=== PATIENT | female | born 1965 | race Caucasian/White ===

== ENCOUNTER 2024-03-28 17:59 | Emergency (ER) | payer OTHER, SELFPAY ==
--- NOTE | ~2024-03-28 | XR_ITS ---
XR chest 2V Ordering provider: Jennifer Carter PA-C History: 58 years Female with . sob, colonoscopy today, r/o aspiration . Comparison: None. FINDINGS: MEDIASTINUM: The cardiac silhouette is not enlarged. LUNGS: No infiltrates, effusions or pneumothorax. Prominent markings in the left upper and lower lobe with patchy opacities which may be focal pneumoni a or nodules. Follow-up advised. OTHER: No free air under the diaphragm. Degenerative spine. IMPRESSION: Patchy opacities in the left upper and lower lobe suggestive of pneumonia. Nodules cannot be excluded . Follow-up advised. Reviewed, dictated and finalized at location A. IMPRESSION: Patchy opacities in the left upper and lower lobe suggestive of pneumonia. Nodu les cannot be excluded. Follow-up advised.
[2024-03-28 18:04] VITALS: BP 136/60; PULSE 118; RESP 20; TEMP 37.5; O2SAT 95
--- NOTE | 2024-03-28 18:10 | ECG_ITS ---
Test Date: 2024-03-28 18:19:02 Measurements Intervals [place] Rate: 106 P: 47 FL: 155 QRS: 7 QRSD: 90 T: 13 QT: 316 QTc: 420 Interpretive Statements SINUS TACHYCARDIA BORDERLINE ST-T WAVE ABNORMALITY- ANTEROLAT/INF LEADS BASELINE ARTIFACT- I, II, III, AVR, AVL, AVF BORDERLINE ECG No previous ECG available for comparison Electronically Signed On 03-28-2024 20:27:50 CDT by Naeem Mireles D.O.
--- NOTE | 2024-03-28 18:10 | ED.SOB ---
HPI - SOB/Dyspnea General Chief Complaint: Shortness of Breath/Dyspnea <FELIPE Mcdowell Last Filed: 03/28/24 18:56> Stated Complaint: shortness of breath <FELIPE Mcdowell Last Filed: 03/28/24 18:56> Time Seen by Provider: 03/28/24 18:05 <FELIPE Mcdowell Last Filed: 03/28/24 18:56> Focused HPI: Patient is a 58-year-old female who presents the ED with report of shortness breath. Patient reports she had an outpatient colonoscopy today at [facility] and was told that they had to suction her wall colonoscopy was performed. Since waking up post procedure, she has had sore throat, cough, shortness of breath, chest heaviness. States she is concerned for aspiration. Reports low grade fever at home. Denies sick contacts. GENERAL: Well-appearing, obese with BMI of 35.7, and in no acute distress. HEAD: Normocephalic, atraumatic. CHEST: Clear to auscultation. No respiratory distress. Frequent coughing on exam. Diffuse rhonchi in bases, worse in left lower lung. HEART: Tachycardic with regular rhythm.? NEURO: ?Alert and oriented x3. Patient screened in triage and initial orders placed.? ?Additional care and disposition to be based upon?diagnostic testing and treatment. <FELIPE Mcdowell Last Filed: 03/28/24 18:56> Source: patient <FELIPE Mcdowell Last Filed: 03/28/24 18:56> Mode of arrival: ambulatory <FELIPE Mcdowell Last Filed: 03/28/24 18:56> Limitations: no limitations <FELIPE Mcdowell Last Filed: 03/28/24 18:56> Related Data Allergies/Adverse Reactions: Allergies Allergy/AdvReac Type Severity Reaction Status Date / Time No Known Allergies Allergy Unknown Unverified 05/15/16 13:59 <FELIPE Mcdowell Last Filed: 03/28/24 18:56> Exam Narrative: EXAMINATION OF ORGAN SYSTEMS/BODY AREAS: Constitutional: Vital signs per nursing GENERAL:[No acute distress, non-toxic appearing.] HEAD: Normal with no signs of head trauma. EYES: EOMI, conjunctiva normal ENT: Hearing grossly intact LUNGS: Nonlabored breathing. HEART: [Regular rate and rhythm] ABD: Not distended EXT: Normal range of motion SKIN: [No rashes or lesions.] NEURO: [Alert and oriented x 3. No gross focal sensory or strength deficits.] PSYCH: Normal affect <Chikis Adame MD - Last Filed: 03/28/24 20:11> Course Vital Signs Vital signs: Vital Signs Temperature 99.5 F 03/28/24 18:04 Pulse Rate 118 H 03/28/24 18:04 Respiratory Rate 20 03/28/24 18:04 Blood Pressure 136/60 03/28/24 18:04 Pulse Oximetry 95 03/28/24 18:04 Oxygen Delivery Room Air 03/28/24 18:04 Temperature 98.9 F 03/28/24 19:30 Pulse Rate 98 03/28/24 19:30 Respiratory Rate 14 03/28/24 19:30 Blood Pressure 103/63 03/28/24 19:30 Pulse Oximetry 95 03/28/24 19:30 Oxygen Delivery Room Air 03/28/24 18:24 <Jennifer Carter PA-C - Last Filed: 03/28/24 18:56> Vital Signs Temperature 99.5 F 03/28/24 18:04 Pulse Rate 118 H 03/28/24 18:04 Respiratory Rate 20 03/28/24 18:04 Blood Pressure 136/60 03/28/24 18:04 Pulse Oximetry 95 03/28/24 18:04 Oxygen Delivery Room Air 03/28/24 18:04 Temperature 98.9 F 03/28/24 19:30 Pulse Rate 98 03/28/24 19:30 Respiratory Rate 14 03/28/24 19:30 Blood Pressure 103/63 03/28/24 19:30 Pulse Oximetry 95 03/28/24 19:30 Oxygen Delivery Room Air 03/28/24 18:24 <Chikis Adame MD - Last Filed: 03/28/24 20:11> MDM - SOB/Dyspnea MDM Narrative Medical decision making narrative: MSE by SLIME in triage. <Jennifer Carter PA-C - Last Filed: 03/28/24 18:56> MSE by SLIME in triage. // Patient presents with cough and chills started today after her colonoscopy. she does have an elevated white count, she has no abdominal pain or tenderness, she did test positive for COVID, pneumonia seen on chest x-
[2024-03-28 18:34] LABS: Basophils Percent Auto 0.2 % (0.2-1.2); Hematocrit 39.8 % (37.0-47.0); Hemoglobin 13.3 g/dL (12.0-15.0); Immature Granulocyte Absolute 0.04 K/mm3 (0.00-0.031); Immature Granulocyte Percent A 0.3 % (0-0.5); Lymphocytes Absolute Auto 0.92 K/mm3 (0.9-3.2); Lymphocytes Percent Auto 6.6 % (18.3-44.2); Mean Corpuscular HGB Conc 33.4 g/dl (32-36); Mean Corpuscular Hemoglobin 31.6 pg (26-34); Mean Corpuscular Volume 94.5 fl (80-100); Mean Platelet Volume 11.1 fl (7.4-10.4); Monocytes Absolute Auto 0.5 K/mm3 (0.1-0.6); Monocytes Percent Auto 3.9 % (2.6-8.5); Neutrophils Absolute Auto 12.3 K/mm3 (1.3-6.7); Platelet Count Result 271 k/mm3 (150-375); Red Blood Count 4.21 M/mm3 (4.2-5.4); Red Cell Distribution Width 12.5 % (11.5-14.5); White Blood Count 13.9 K/mm3 (4.5-10.0)
[2024-03-28 18:46] LABS: Prothrombin Time 13.2 Seconds (11.1-14.7)
[2024-03-28 18:47] LABS: Partial Thromboplastin Time 26.6 Seconds (22.3-36.8)
[2024-03-28] MEDS: ACETAMINOPHEN 500 MG TABLET 1000 MG PO (18:47)
[2024-03-28 18:48] LABS: Alanine Aminotransferase 39 U/L (6-35); Albumin Level 4.3 g/dL (3.5-5.1); Alkaline Phosphatase 68 U/L (38-126); Anion Gap 12 mmol/L (4-12); Aspartate Amino Transferase 35 U/L (14-36); Bilirubin,Total 0.3 mg/dL (0.2-1.3); Blood Urea Nitrogen 14 mg/dL (7-17); Calcium 9.2 mg/dL (8.4-10.2); Carbon Dioxide 24 mmol/L (22-30); Chloride 101 mmol/L (98-107); Estimated CRCL calculation 125 ml/min; Estimated Glomerular Filt Rate > 60; Glucose 177 mg/dL (65-110); Potassium 3.8 mmol/L (3.4-5.0); Sodium 137 mmol/L (137-145)
[2024-03-28] MEDS: SODIUM CHLORIDE 0.9% IV 1,000 ML 999 ML IV CONT (18:48)
[2024-03-28 18:49] LABS: Lactic Acid Reflex 2.1 mmol/L (0.7-2.0)
[2024-03-28 18:57] LABS: NT Pro B Type Natriuretic Pept 142 pg/mL (19.9-100); Troponin I < 0.012 ng/mL (0.000-0.034)
[2024-03-28 19:10] LABS: Influenza A QL RT-PCR Negative (Negative); Influenza B QL RT-PCR Negative (Negative); RSV RNA, RT-PCR Negative (Negative); SARS-CoV-2 RNA PCR Positive (Negative)
--- NOTE | 2024-03-28 19:14 | PC.NURSE ---
Report received from HIMA Garcia. Assumed care of patient at this time.
[2024-03-28 19:15] VITALS: TEMP 37.2
[2024-03-28 19:30] VITALS: BP 103/63; PULSE 98; RESP 14; TEMP 37.2; O2SAT 95
[2024-03-28] MEDS: AZITHROMYCIN 250 MG TABLET 500 MG PO (19:38)
[2024-03-28] MEDS: cefTRIAXone 2 GM/NS 100 ML 2 GM/100 ML BAG IVPB (19:39)
[2024-03-28 20:38] VITALS: PULSE 88; RESP 17; O2SAT 96
[2024-03-28 21:32] LABS: Reflex Lactic Acid Yes or No Add Lactic
== END 2024-03-28 20:59 | disposition home or self-care (01) ==
PROVIDERS: Physician Assistant; Emergency Provider Emergency Medicine
DX: J18.9 Pneumonia, unspecified organism (principal); Z20.822 Contact with and (suspected) exposure to COVID-19; Z86.16 Personal history of COVID-19; R00.0 Tachycardia, unspecified; R94.31 Abnormal electrocardiogram [ECG] [EKG]
CPT/HCPCS: 36415; 71046; 80053; 83605; 83880; 84484; 85025; 85610; 85730; 87040; 87637; 93005; 96361; 96365; 99284; A9270; J0696; J7030